=== PATIENT | male | born 1955 | race African-American/Black ===

== ENCOUNTER 2022-07-03 04:44 | Emergency (ER) | payer OTHER ==
[~2022-07-03] VITALS: Ht 185.4 cm; Wt 91.0 kg
[~2022-07-03 04:44] MED LIST: BRIM10DR2 OP; NIFEDIPINE PO
[2022-07-03] MEDS ORDERED: IBUPROFEN 600MG TABLET PO ONE (06:30)
[2022-07-03 09:38] VITALS: BP 158/100
[2022-07-03] MEDS ORDERED: MELO-105 MT (09:47)
== END 2022-07-03 10:45 | disposition home or self-care (01) ==
LOC: ER 04:44
DX: M25.561 Pain in right knee (principal); I10 Essential (primary) hypertension; F14.10 Cocaine abuse, uncomplicated
CPT/HCPCS: 73562; 99283